=== PATIENT | female | born 1995 | race Caucasian/White ===

== ENCOUNTER 2024-10-10 11:35 | Emergency (ER) | payer OTHER, SELFPAY ==
--- NOTE | ~2024-10-10 | XR_ITS ---
EXAMINATION: XR HAND/WRIST, RIGHT CLINICAL INFORMATION: pain/swelling s/p hitting last night COMPARISON: X-ray dated 09/01/2017 TECHNIQUE: PA, lateral, and oblique views of the right hand and wrist. FINDINGS: No acute cortical disruption or malalignment. No lytic or blastic lesions. No subcutaneous emphysema. XR/XR hand wrist RT IMPRESSION: No acute fracture or dislocation. Electronically signed by: Rasta Hickey MD 10/10/2024 12:41 PM MANE
--- NOTE | 2024-10-10 11:54 | ED_ITS ---
HPI - Extremity Injury (Upper) General Chief Complaint: Extremity Injury, Upper Stated Complaint: R hand injury Time Seen by Provider: 10/10/24 13:02 Source: patient, RN notes reviewed and old records reviewed Mode of arrival: ambulatory History of Present Illness ED Provider: Mery Bonds PA-C HPI narrative: 29-year-old female with no significant past medical history presenting to the ED complaining of right hand/wrist pain and swelling s/p hitting hand on counter while cooking last night. States pain radiating to wrist with associated numbness/tingling to 5th digit. Right-hand dominant. Denies history of gout or arthritis. Denies weakness Related Data Allergies Allergy/AdvReac Type Severity Reaction Status Date / Time mushroom AdvReac Unknown Verified 10/10/24 11:56 Seasonal Allergies AdvReac Unknown Verified 10/10/24 11:56 Review of Systems Review of Systems: Yes all other systems are reviewed and are negative Constitutional: Constitutional: Reports as per [facility] Past Medical History Attestation statement: The following information was validated with the patient. Source: old records reviewed Physical Exam Vital Signs: Vital Signs: Last Vital Signs Temp 97.4 F 10/10/24 11:55 Pulse 88 10/10/24 11:55 Resp 18 10/10/24 11:55 BP 145/92 H 10/10/24 11:55 Pulse Ox 97 10/10/24 11:55 O2 Del Method Room Air 10/10/24 11:55 BMI result Body Mass Index 44.1 Const: General: cooperative, healthy appearing and no acute distress Orientation/consciousness: patient oriented x3 Limitations: no limitations HEENT: Head: Yes normal to inspection and Yes atraumatic Ears: hearing grossly normal bilaterally General nose exam: Normal external nose present Face and sinus: Yes normal facial exam Eyes: General: appearance normal, both eyes and all related structures EOM: EOMs intact bilaterally Neck: Neck: Yes normal visual inspection and Yes no meningeal signs Resp: Effort & Inspection: normal respiratory effort and no respiratory distress Cardio: Rate: regular rate Skin: Rashes: no rashes Wounds: no wounds Neuro: General: patient oriented x3, tone normal and no meningeal signs Cranial nerves: Yes CN's II-XII intact bilaterally Gait exam (Neuro): Normal gait present Extrem: Other: Right hand/wrist with mild swelling. No erythema/warmth. + tender to palpation greatest over ulnar aspect of wrist/5th digit. ROM intact with discomfort. [id number] opposition intact. No crepitus. Course Course Course Narrative: This is a Rapid Medical Exam performed in triage by Mery Bonds PA-C. Full HPI, ROS and PE to be performed by primary ED provider. 29-year-old female presenting to the ED c/o R hand pain/ swelling s/p hitting hand while cooking last night. Admits to tingling in pinky. R hand dominant PE: +R hand swelling, +ttp, dec ROM 2/2 pain, NV intact Plan: XR 1303--XR hand wrist RT IMPRESSION: No acute fracture or dislocation. > velcro volar splint applied for comfort Results discussed with patient including worrisome signs and symptoms and strict return precautions, and when to return to the emergency department. They verbalized understanding and feel safe for discharge at this time. Medical Decision Making Medical Decision Making MDM Narrative: 29-year-old female with no significant past medical history presenting to the ED complaining of right hand/wrist pain and swelling s/p hitting hand on counter while cooking last night. On exam vital signs stable, NAD, nontoxic appearing, physical exam as noted above. Concern for sprain vs fracture. No evidence of septic joint/arthritis or cellulitis. Compartments soft. Low suspicion for DVT Plan: X-ray Please refer to course for remaining clinical decision making, interpretation of labs/imaging results, and discussions with consultants and/or family members. Differential Diagnosis Differential Diagnoses: The differential diagnosis associated with the presentation includes As above Independent Interpretation I performed an independent interpretation of an: Plain X-Ray Radiology Impression Discussion of test interpretation with radiology: I have reviewed the radiologist's reading. External Record Review External record reviewed: Inpatient record, Office record, Outpatient record, Prior outpatient labs, Prior outpatient radiology, Primary care record and Outside ED record Tests considered The following testing was considered but not selected: As above Prescription Management I considered prescription management with: Pain Medication Social Determinants Patient?s care significantly limited by Social Determinants of Health including: Other Social Determinant of Health Discharge Plan Discharge Clinical Impression: Right wrist sprain Patient Disposition: Home, Self-Care Instructions: Wrist Injury (ED) Additional Instructions: Your x-ray is unremarkable Ice and elevate Take Tylenol and ibuprofen as needed Follow-up with her doctor If symptoms persist or worsen or pain is unbearable or area begins to look infected return to the ED Referrals: Physician,Unknown J [Primary Care Provider] - Stand Alone Forms: Work/School Release Print Language: Sinhala
[2024-10-10 11:55] VITALS: BP 145/92; PULSE 88; RESP 18; TEMP 36.3; O2SAT 97; BMI 44.1
[2024-10-10 13:12] VITALS: BP 145/92; PULSE 88; RESP 18; TEMP 36.3; O2SAT 97
== END 2024-10-10 13:14 | disposition home or self-care (01) ==
LOC: HO.ED 13:12
PROVIDERS: Emergency Provider Student in an Organized Health Care Education/Training Program
DX: S63.501A Unspecified sprain of right wrist, initial encounter (principal); M25.531 Pain in right wrist; M79.641 Pain in right hand; X58.XXXA Exposure to other specified factors, initial encounter; Y93.9 Activity, unspecified; Y92.000 Kitchen of unspecified non-institutional (private) residence as the place of occurrence of the external cause; Y99.9 Unspecified external cause status
CPT/HCPCS: 73110; 73130; 99282; 99283

== ENCOUNTER 2024-12-19 14:50 | Emergency (ER) | payer OTHER, SELFPAY ==
--- NOTE | ~2024-12-19 | XR_ITS ---
CLINICAL HISTORY: low back pain Radiographs of the lumbar spine, 3 views Comparison: None Findings: Mild levocurvature with the apex L2/L3. No fracture. The vertebral body heights are preserved. There is mild multilevel intervertebral disc space narrowing with mild endplate osteophytosis. Mild lower lumbar facet hypertrophy. The soft tissues are normal. Impression: No acute findings. Mild degenerative change. This document has been electronically signed by: Elizabeth Spencer MD on 12/19/2024 18:55:52
[2024-12-19 15:20] VITALS: BP 152/94; PULSE 116; RESP 20; TEMP 36.9; O2SAT 100; BMI 44.6
--- NOTE | 2024-12-19 15:23 | ED_ITS ---
HPI - General Adult General Chief complaint: Back Pain/Injury Stated complaint: Lower Back Pain- Numbness, Shooting Pains Down Leg Time Seen by Provider: 12/19/24 16:11 Related Data Previous Rx's ?Medication ?Instructions ?Recorded cyclobenzaprine 10 mg tablet 10 mg PO Q8H #20 tabs 12/19/24 ibuprofen 600 mg tablet 600 mg PO Q6H PRN fever or pain 12/19/24 #30 tabs morphine 15 mg immediate release 15 mg PO Q8H PRN pain #15 tabs 12/19/24 tablet Allergies Allergy/AdvReac Type Severity Reaction Status Date / Time mushroom AdvReac Unknown Verified 12/19/24 15:22 Seasonal Allergies AdvReac Unknown Verified 12/19/24 15:22 [facility] Social History Social History Unable to assess alcohol history related to: Unknown Physical Exam ED Vital Signs: BMI result Body Mass Index 44.6 Course Course Course Narrative: This is a rapid medical exam performed by Carin Mcknight PA-C. The patient is a 29-year-old female with self report of scoliosis, morbid obesity who presents with the acute onset low back pain. Patient states she was at work, ?standing in an odd position?, when she developed acute onset severe central lumbar pain with radiation down both lower extremities. She states her legs were numb for 20 minutes, sensation is now intact. Patient not willing to participate in musculoskeletal exam secondary to her pain. Denies bowel incontinence or urinary retention. Plan to order a CT of the lumbar spine and screening labs. The patient was stable and can return to the waiting room pending her full medical assessment. Medications Administered Discontinued Medications Generic Name Dose Route Start Last Admin Trade Name Freq PRN Reason Stop Dose Admin Cyclobenzaprine HCl 10 mg 12/19/24 16:19 12/19/24 16:36 Cyclobenzaprine Hcl 10 Mg Tablet PO 12/19/24 16:20 10 mg ONCE ONE Administration Morphine Sulfate 15 mg 12/19/24 16:19 12/19/24 16:34 Morphine Sulfate Immed Release 15 Mg Tablet PO 12/19/24 16:20 15 mg ONCE ONE Administration Ondansetron HCl 4 mg 12/19/24 18:05 12/19/24 18:07 Ondansetron Odt 4 Mg Tab.Rapdis TRANSLINGU 03/19/25 18:06 4 mg ONCE ONE Administration Medical Decision Making Lab Data 12/19/24 15:39 12/19/24 15:39 Labs: Lab Results 12/19/24 Range/Units 15:39 WBC 13.6 H (4.8-10.8) X10*3/uL RBC 4.95 (4.20-5.50) X10*6/uL Hgb 13.9 (12.0-16.0) g/dl Hct 40.4 (37.0-47.0) % MCV 81.6 (80.0-98.0) fL MCH 28.1 (27.0-33.0) pg MCHC 34.4 (31.0-35.0) g/dl RDW 12.7 (11.0-16.0) % Plt Count 345 (160-400) X10*3/uL MPV 9.1 L (9.4-12.3) fL Immature Gran % (Auto) 0.4 (0.0-0.4) % Neut % (Auto) 71.8 (45-73) % Lymph % (Auto) 18.8 L (20-40) % [place] % (Auto) 7.7 (2-11) % Eos % (Auto) 1.0 (0-4) % Baso % (Auto) 0.3 (0-2) % Lymph # (Auto) 2.6 (1.2-4.9) X10*3/uL [place] # (Auto) 1.1 (0.1-1.2) X10*3/uL Eos # (Auto) 0.1 (0.0-0.4) X10*3/uL Baso # (Auto) 0.0 (0.0-0.2) X10*3/uL Abs Immat Gran (auto) 0.05 H (0.00-0.03) X10*3/uL Absolute Neuts (auto) 9.8 H (2.0-8.3) x10*3/uL Absolute Nucleated RBC 0.000 (0.0-0.012) X10*3/uL Nucleated RBC % (auto) 0.0 (0.0-0.2) /100WBC Sodium 141 (135-145) mmol/L Potassium 4.2 (3.3-5.1) mmol/L Chloride 109 H (96-108) mmol/L Carbon Dioxide 25 (22-29) mmol/L Anion Gap 11 L (12-20) BUN 9 (9-16) mg/dL Creatinine 0.70 (0.5-1.4) mg/dL Estim Creat Clear Calc 152.4 Estimated GFR > 60 Random Glucose 97 (60-115) mg/dL Calcium 10.1 (8.4-10.2) mg/dL Magnesium 1.8 (1.6-2.6) mg/dL Beta HCG, Quant < 2 mIU/mL Discharge Plan Discharge Clinical Impression: Strain of lumbar region Patient Disposition: Home, Self-Care Instructions: Low Back Strain (ED) Additional Instructions: Rest take pain medication muscle relaxant as prescribed Follow up with legal support specialist Prescriptions: New cyclobenzaprine 10 mg tablet 10 mg PO Q8H Qty: 20 0RF ibuprofen 600 mg tablet 600 mg PO Q6H PRN (Reason: fever or pain) Qty: 30 0RF morphine 15 mg tablet 15 mg PO Q8H PRN (Reason: pain) Qty: 15 0RF Rx Instructions: Partial Fill upon patient request. Referrals: Jose Daniel Guerrero MD [Physician] - 2 weeks Interventions: ED Discharge Assessment Last Done: 12/19/24 19:09 Discharge Date/Time: 12/19/24 19:10 Print Language: Greek
[2024-12-19 15:45] LABS: MANUAL DIFF FLAG NO
[2024-12-19 15:48] LABS: Basophils Percent Auto 0.3 % (0-2); Eosinophils Absolute Auto 0.1 X10*3/uL (0.0-0.4); Hematocrit 40.4 % (37.0-47.0); Hemoglobin 13.9 g/dl (12.0-16.0); Imm Gran Abs Auto 0.05 X10*3/uL (0.00-0.03); Imm Gran Pct Auto 0.4 % (0.0-0.4); Lymphocytes Absolute Auto 2.6 X10*3/uL (1.2-4.9); Lymphocytes Percent Auto 18.8 % (20-40); Mean Corpuscular HGB Conc 34.4 g/dl (31.0-35.0); Mean Corpuscular Hemoglobin 28.1 pg (27.0-33.0); Mean Corpuscular Volume 81.6 fL (80.0-98.0); Mean Platelet Volume 9.1 fL (9.4-12.3); Monocytes Absolute Auto 1.1 X10*3/uL (0.1-1.2); Monocytes Percent Auto 7.7 % (2-11); Neutrophils Absolute Auto 9.8 x10*3/uL (2.0-8.3); Neutrophils Percent Auto 71.8 % (45-73); Platelet Count 345 X10*3/uL (160-400); Red Blood Count 4.95 X10*6/uL (4.20-5.50); Red Cell Distribution Width 12.7 % (11.0-16.0); White Blood Count 13.6 X10*3/uL (4.8-10.8)
[2024-12-19 15:54] VITALS: BP 137/72; PULSE 92; RESP 20; TEMP 36.5; O2SAT 99
[2024-12-19 16:10] LABS: Anion Gap 11 (12-20); Blood Urea Nitrogen 9 mg/dL (9-16); Calcium 10.1 mg/dL (8.4-10.2); Carbon Dioxide 25 mmol/L (22-29); Chloride 109 mmol/L (96-108); Creatinine Clr Calc Pharmacy 152.4; Estimated Glomerular Filt Rate > 60; Glucose Random 97 mg/dL (60-115); Magnesium 1.8 mg/dL (1.6-2.6); Potassium 4.2 mmol/L (3.3-5.1); Sodium 141 mmol/L (135-145)
[2024-12-19 16:13] LABS: HCG Quantitative < 2 mIU/mL
[2024-12-19] MEDS: Morphine Sulfate Immed Release 15 MG TABLET PO (16:34)
[2024-12-19] MEDS: Cyclobenzaprine HCl 10 MG TABLET PO (16:36)
--- NOTE | 2024-12-19 16:49 | ED_ITS ---
HPI - Back Pain/Injury General Chief Complaint: Back Pain/Injury Stated Complaint: Lower Back Pain- Numbness, Shooting Pains Down Leg Time Seen by Provider: 12/19/24 16:11 Source: patient Mode of arrival: ambulatory Limitations: no limitations History of Present Illness ED Provider: HPI Narrative: Patient with chronic low back pain has not seen any specialist yet no recent trauma noticed increased pain in the lower back since yesterday radiating to bilateral lower extremity noticed numbness while standing prior to arrival for 30 minute, also complaining of tingling in the lower extremity but able to move,no bladder or bowel incontinence Related Data Previous Rx's ?Medication ?Instructions ?Recorded cyclobenzaprine 10 mg tablet 10 mg PO Q8H #20 tabs 12/19/24 ibuprofen 600 mg tablet 600 mg PO Q6H PRN fever or pain 12/19/24 #30 tabs morphine 15 mg immediate release 15 mg PO Q8H PRN pain #15 tabs 12/19/24 tablet Allergies Allergy/AdvReac Type Severity Reaction Status Date / Time mushroom AdvReac Unknown Verified 12/19/24 15:22 Seasonal Allergies AdvReac Unknown Verified 12/19/24 15:22 Review of Systems 2 Review of Systems: Yes all other systems are reviewed and are negative [facility] Social History Social History Unable to assess alcohol history related to: Unknown Physical Exam 2 Vital Signs: Vital Signs: Last Vital Signs Temp 98.1 F 12/19/24 19:09 Pulse 77 12/19/24 19:09 Resp 18 12/19/24 19:09 BP 129/80 12/19/24 19:09 Pulse Ox 99 12/19/24 19:09 O2 Del Method Room Air 12/19/24 19:09 BMI result Body Mass Index 44.6 Appearance: Alert. Oriented X3. Obese in modest distress Eyes: PERRLA, No Nystagmus ENT: Pharynx normal. Oral Mucosa moist Neck: Normal inspection. Neck supple. CVS: Normal heart rate and rhythm. Pulses normal. Respiratory: No respiratory distress. Equal air entry bilateral, no wheezing/rales/rhonchi Abdomen: Soft and nontender. Bowel sounds are present, no mass palpable, no CVA tenderness Skin: Skin warm and dry. Normal skin color. Normal skin turgor. Extremities: No lower extremity edema. No calf tenderness Back; diffuse lumbar tenderness SLR bilateral positive deep tendon reflexes normal sensation intact sacral sensations intact Neuro: Oriented X 3. No motor deficit. No sensory deficit.No cerebellar signs , cranial nerves II-XII intact Medications Administered Discontinued Medications Generic Name Dose Route Start Last Admin Trade Name Freq PRN Reason Stop Dose Admin Cyclobenzaprine HCl 10 mg 12/19/24 16:19 12/19/24 16:36 Cyclobenzaprine Hcl 10 Mg Tablet PO 12/19/24 16:20 10 mg ONCE ONE Administration Morphine Sulfate 15 mg 12/19/24 16:19 12/19/24 16:34 Morphine Sulfate Immed Release 15 Mg Tablet PO 12/19/24 16:20 15 mg ONCE ONE Administration Ondansetron HCl 4 mg 12/19/24 18:05 12/19/24 18:07 Ondansetron Odt 4 Mg Tab.Rapdis TRANSLINGU 12/19/24 18:06 4 mg ONCE ONE Administration Medical Decision Making Medical Decision Making [facility] Narrative: Patient with chronic low back pain with subjective pain no objective finding of neuro deficit patient was ambulatory in the ED after pain medication x-ray negative for fracture patient advised to follow with pain clinic Lab Data [facility] Lab Attestation statement: I reviewed the patient's lab results. 12/19/24 15:39 12/19/24 15:39 Labs: Lab Results 12/19/24 Range/Units 15:39 WBC 13.6 H (4.8-10.8) X10*3/uL RBC 4.95 (4.20-5.50) X10*6/uL Hgb 13.9 (12.0-16.0) g/dl Hct 40.4 (37.0-47.0) % MCV 81.6 (80.0-98.0) fL MCH 28.1 (27.0-33.0) pg MCHC 34.4 (31.0-35.0) g/dl RDW 12.7 (11.0-16.0) % Plt Count 345 (160-400) X10*3/uL MPV 9.1 L (9.4-12.3) fL Immature Gran % (Auto) 0.4 (0.0-0.4) % Neut % (Auto) 71.8 (45-73) % Lymph % (Auto) 18.8 L (20-40) % [place] % (Auto) 7.7 (2-11) % Eos % (Auto) 1.0 (0-4) % Baso % (Auto) 0.3 (0-2) % Lymph # (Auto) 2.6 (1.2-4.9) X10*3/uL [place] # (Auto) 1.1 (0.1-1.2) X10*3/uL Eos # (Auto) 0.1 (0.0-0.4) X10*3/uL Baso # (Auto) 0.0 (0.0-0.2) X10*3/uL Abs Immat Gran (auto) 0.05 H (0.00-0.03) X10*3/uL Absolute Neuts (auto) 9.8 H (2.0-8.3) x10*3/uL Absolute Nucleated RBC 0.000 (0.0-0.012) X10*3/uL Nucleated RBC % (auto) 0.0 (0.0-0.2) /100WBC Sodium 141 (135-145) mmol/L Potassium 4.2 (3.3-5.1) mmol/L Chloride 109 H (96-108) mmol/L Carbon Dioxide 25 (22-29) mmol/L Anion Gap 11 L (12-20) BUN 9 (9-16) mg/dL Creatinine 0.70 (0.5-1.4) mg/dL Estim Creat Clear Calc 152.4 Estimated GFR > 60 Random Glucose 97 (60-115) mg/dL Calcium 10.1 (8.4-10.2) mg/dL Magnesium 1.8 (1.6-2.6) mg/dL Beta HCG, Quant < 2 mIU/mL Discharge Plan Discharge Clinical Impression: Strain of lumbar region Patient Disposition: Home, Self-Care Instructions: Low Back Strain (ED) Additional Instructions: Rest take pain medication muscle relaxant as prescribed Follow up with reproduction specialist Prescriptions: New cyclobenzaprine 10 mg tablet 10 mg PO Q8H Qty: 20 0RF ibuprofen 600 mg tablet 600 mg PO Q6H PRN (Reason: fever or pain) Qty: 30 0RF morphine 15 mg tablet 15 mg PO Q8H PRN (Reason: pain) Qty: 15 0RF Rx Instructions: Partial Fill upon patient request. Referrals: Jose Daniel Guerrero MD [Physician] - 2 weeks Interventions: ED Discharge Assessment Last Done: 12/19/24 19:09 Discharge Date/Time: 12/19/24 19:10 Print Language: Emirati
[2024-12-19] MEDS: Ondansetron ODT 4 MG TAB.RAPDIS TRANSLINGU (18:07)
--- NOTE | 2024-12-19 18:09 | PC.NURSE ---
Pt vomiting and dry heaving. wants to eat. medicated with zofran per md order. advised to delay eating until no longer nauseated.
[2024-12-19 18:27] VITALS: BP 135/91; PULSE 76; RESP 14; O2SAT 100
[2024-12-19 19:09] VITALS: BP 129/80; PULSE 77; RESP 18; TEMP 36.7; O2SAT 99
== END 2024-12-19 19:10 | disposition home or self-care (01) ==
PROVIDERS: Physician Assistant Medical; Emergency Provider Internal Medicine
DX: S39.012A Strain of muscle, fascia and tendon of lower back, initial encounter (principal); R20.0 Anesthesia of skin; X58.XXXA Exposure to other specified factors, initial encounter; Y93.9 Activity, unspecified; Y92.9 Unspecified place or not applicable; Y99.8 Other external cause status
CPT/HCPCS: 36415; 72100; 80048; 83735; 84702; 85025; 99283; 99284

== ENCOUNTER → 2024-12-19 16:19 | Outpatient (BNV) | payer OTHER, SELFPAY | PROVIDERS: Emergency Provider Internal Medicine; Visit Provider Radiology Diagnostic Radiology | DX: M54.50 Low back pain, unspecified (principal) | CPT/HCPCS: 72100 ==

== ENCOUNTER 2025-01-16 09:20 | Emergency (ER) | payer OTHER, SELFPAY ==
--- NOTE | ~2025-01-16 | CT_ITS ---
EXAMINATION: CT HEAD WITHOUT CONTRAST CLINICAL INFORMATION: Head trauma, severe headache COMPARISON: None available. TECHNIQUE: Contiguous axial imaging was performed from the skull base to vertex without intravenous administration of contrast. This CT examination was performed using dose optimization techniques as appropriate, variously including the following: *Automated exposure control *Adjustment of mA and/or kV according to patient size (this includes techniques or standardized protocols for targeted exams where dose is matched to indication/reason for exam; i.e. extremities or head) *Use of iterative reconstruction technique FINDINGS: There is no evidence of intracranial hemorrhage or extra-axial fluid collection. There is no mass effect, or edema. No CT evidence of acute territorial infarct. Ventricles, sulci, and cisterns are normal in size and configuration for patient age. No hydrocephalus. No midline shift. Negative hyperdense MCA sign. Negative insular ribbon sign. No significant white matter abnormalities. Normal pituitary. Globes and orbital contents image normally. No extracranial soft tissue abnormalities. The paranasal sinuses, mastoid air cells, and tympanic cavities are normally aerated. No suspicious bony abnormalities. There are no acute fractures evident. CT/CT head/brain wo IV con IMPRESSION: No acute intracranial abnormality. There are no fractures evident. Electronically signed by: Nilesh Burger MD 01/16/2025 10:45 AM EDT
[2025-01-16 09:25] VITALS: BP 150/94; PULSE 75; RESP 16; TEMP 36.7; O2SAT 100; BMI 41.1
--- NOTE | 2025-01-16 10:16 | ED.HEATRA ---
HPI - Head Injury General Chief complaint: Head Injury Stated complaint: Concussion Symptoms- Headache, Loss of Sleep Time Seen by Provider: 01/16/25 09:52 Source: patient Mode of arrival: ambulatory Limitations: no limitations History of Present Illness ED Provider: RENÉE GASTELUM Narrative: 29 yo female with PMH of concussions not on blood thinners here with c/o left sided head pain due to headstrike last night (01/15). Patient states she was in her bathroom and turned quickly causing her to hit the left side of her head on the corner of the wall. She states she did not experience loss of consciousness, but does report headache and photophobia this morning when waking up. She has trialed ibuprofen last night for pain management without effect. She reports she had a concussion approximately 10 years ago while in highschool and this injury feels similar in nature. She denies, vomiting, visual changes, or weakness. MD Complaint: head injury Onset (ago): day(s) (1 day (01/15) ) Mechanism of Injury: other (turned and hit head on wall) Place: home Loss of Consciousness: no Location of injury: temporal (left) Severity: moderate Quality: dull Radiation: none Other Injuries: none Associated symptoms: other (photophobia) Related Data Previous Rx's ?Medication ?Instructions ?Recorded cyclobenzaprine 10 mg tablet 10 mg PO Q8H #20 tabs 12/19/24 ibuprofen 600 mg tablet 600 mg PO Q6H PRN fever or pain 12/19/24 #30 tabs morphine 15 mg immediate release 15 mg PO Q8H PRN pain #15 tabs 12/19/24 tablet cyclobenzaprine 10 mg tablet 10 mg PO TID PRN muscle spasm #20 01/16/25 tabs ondansetron 4 mg disintegrating 4 mg PO Q8H PRN nausea and 01/16/25 tablet vomiting #20 tabs Allergies Allergy/AdvReac Type Severity Reaction Status Date / Time mushroom AdvReac Unknown Verified 01/16/25 09:27 Seasonal Allergies AdvReac Unknown Verified 01/16/25 09:27 Review of Systems Review of Systems: Constitutional : No Fever, No Chills, No Fatigue ENT/Mouth : No sore throat, No Rhinorrhea Eyes: No Eye Pain, No Swelling, No Redness, pos photophobia Cardiovascular : No Chest Pain, No SOB, No Dyspnea on Exertion Respiratory : No Cough, No Sputum Gastrointestinal : No Nausea, No Vomiting, No Diarrhea, No abdominal Pain Genitourinary : No Dysuria, No Urinary Frequency, No Hematuria, Musculoskeletal : No joint pain, No Myalgias, No Joint Swelling Skin : No Skin Lesions, No rash Neuro : No Weakness, No Numbness, No Dizziness, positive Headache Psych : No Anxiety/Panic, No Depression Heme/Lymph: No Bruising, No Bleeding,No Lymphadenopathy Endocrine : No Polyuria, No Polydipsia All other systems reviewed and are negative Yes all other systems are reviewed and are negative [facility] Past Medical History Attestation statement: The following information was validated with the patient. Source: old records reviewed Medical History Concussion Social History Social History Unable to assess alcohol history related to: Unknown Patient Tobacco Use Status: Never used Tobacco Advance Directives: No Advance Directives Information Provided: Yes Physical Exam Vital Signs: Vital Signs: Last Vital Signs Temp 98.1 F 01/16/25 09:25 Pulse 75 01/16/25 09:25 Resp 16 01/16/25 09:25 BP 150/94 H 01/16/25 09:25 Pulse Ox 100 01/16/25 09:25 O2 Del Method Room Air 01/16/25 09:25 BMI result Body Mass Index 41.1 Appearance: Alert. Oriented X3. No acute distress. Eyes: Pupils equal, round and reactive to light. ENT: Pharynx normal. no raccoon eyes or gallagher sign Neck: Normal inspection. Neck supple. CVS: Normal heart rate and rhythm. Pulses normal. Respiratory: No respiratory distress. Breath sounds normal. Abdomen: Soft and nontender. Skin: Skin warm and dry. Normal skin color. Normal skin turgor. Extremities: No lower extremity edema. No calf ttp Neuro: Oriented X 3. No motor deficit. No sensory deficit. CN2-12 intact Medications Administered Discontinued Medications Generic Name Dose Route Start Last Admin Trade Name Freq PRN Reason Stop Dose Admin Ketorolac Tromethamine 30 mg 01/16/25 10:30 01/16/25 10:44 Ketorolac Tromethamine 30 Mg/Ml Vial IM 01/16/25 10:31 30 mg ONCE ONE Administration Ondansetron HCl 4 mg 01/16/25 10:30 01/16/25 10:44 Ondansetron Odt 4 Mg Tab.Avril RUTLEDGE 01/16/25 10:31 4 mg ONCE ONE Administration Medical Decision Making Medical Decision Making [facility] Narrative: 29 yo female with PMH of concussions not on blood thinners here with c/o left sided head pain due to headstrike last night (01/15). Patient states she was in her bathroom and turned quickly causing her to hit the left side of her head on the corner of the wall. She states she did not experience loss of consciousness, but does report headache and photophobia this morning when waking up. She has trialed ibuprofen last night for pain management without effect. She reports she had a concussion approximately 10 years ago while in highschool and this injury feels similar in nature. She denies vomiting, visual changes, or weakness. Patient is non toxic appearing and vital signs unremarkable with exception of BP which is elevated at 150/94 likely due to severe headache. Will obtain CT head to ensure no hemorrhage or temporal skull fracture. Will give IM toradol for headache and ondansetron for nausea. Differential Diagnosis Differential Diagnoses: The differential diagnosis associated with the presentation includes concussion, head injury, migraine Admission/Observation Consideration of admission/observation: Escalation of care including admission/observation considered feels better, work up reassuring stable for DC Independent Interpretation I performed an independent interpretation of an: CT Scan (normal ) Radiology Impression Discussion of test interpretation with radiology: I have reviewed the radiologist's reading. External Record Review External record reviewed: Outpatient record Prescription Management I considered prescription management with: Other Discharge Plan Discharge Clinical Impression: Concussion without loss of consciousness Qualifiers: Encounter type: initial encounter Qualified Code(s): S06.0X0A - Concussion without loss of consciousness, initial encounter Patient Disposition: Home, Self-Care Instructions: Concussion (ED) Additional Instructions: [place] [facility] for [place] today. Your CT scan was reassuring and revealed no trauma. You will be placed on brain rest protocol for 1 week. This includes plenty of rest, time off of work, no strenuous exercise, eliminate screen time and limit time under bright lights. follow up with your doctor if not better in one week no ibuprofen/motrin until 6pm Prescriptions: New cyclobenzaprine 10 mg tablet 10 mg PO TID PRN (Reason: muscle spasm) Qty: 20 0RF ondansetron 4 mg tablet,disintegrating 4 mg PO Q8H PRN (Reason: nausea and vomiting) Qty: 20 0RF No Action cyclobenzaprine 10 mg tablet 10 mg PO Q8H Qty: 20 0RF ibuprofen 600 mg tablet 600 mg PO Q6H PRN (Reason: fever or pain) Qty: 30 0RF morphine 15 mg tablet 15 mg PO Q8H PRN (Reason: pain) Qty: 15 0RF Rx Instructions: Partial Fill upon patient request. Stand Alone Forms: Work/School Release Print Language: Yoruba
[2025-01-16] MEDS: Ondansetron ODT 4 MG TAB.RAPDIS TRANSLINGU (10:44)
[2025-01-16] MEDS: Ketorolac Tromethamine 30 MG/ML VIAL IM (10:44)
[2025-01-16 11:13] VITALS: BP 121/74; PULSE 62; RESP 16; O2SAT 96
[2025-01-16 11:25] VITALS: BP 121/74; PULSE 62; RESP 16; TEMP -17.7; TEMP 0; O2SAT 96
--- OUTSIDE RECORDS SUMMARY | 2025-01-16 12:27 | XMS_ITS | Encounter Summary ---
Author Organization [email or web address] Address [address] [place] [address] Care Team Providers Care Supervisor [employer] Name Role Phone Unavailable Primary Care Provider Unavailabl e Encounter Details Date Type Department Care Team (Latest Contact Info) Description 07/20/2019 Abstract [facility] CONVERSIONS Dental, Provider, DDS Social History Tobacco Use Types Packs/Day Years Used Date Smoking Tobacco: Never Assessed Comments Unknown Sex and Gender Information Value Date Recorded Sex Assigned at Female 08/02/2022 10:30 AM EDT Legal Sex Female 10:30 AM EDT Gender Identity Female 08/02/2022 10:30 AM EDT Sexual Orientation Choose not to disclose 2021 10:30 AM EDT documented as of this encounter Plan of Treatment Not on file documented as of this encounter Visit Diagnoses Not on filedocumented in this encounter
--- OUTSIDE RECORDS SUMMARY | 2025-01-16 12:27 | XMS_ITS | Encounter Summary ---
Author Organization [facility] [place] [address] Care Team Providers Care Proofer Prepress Name Role Phone Tamiko Santos MD Primary Care Provider [phone] Encounter Details Date Type Department Care Team ([facility] st Contact Info) Description 01/10/2025 Telephone Adult Medicine [address] [phone] Myrna Paris, TERENCE Social History Tobacco Use Types Packs/Day Years Used Date Smoking Tobacco: Some Days Smokeless Tobacco: Current Alcohol Use Standard Drinks/Week Comments Not Currently 0 (1 standard drink = 0.6 oz pur e alcohol) Housing Instability Answer Date Recorde d Are you worried that in the next 2 months you may not have stable housing? No 01/09/2025 Food Access & Nutrition Answer Date Rec orded Do you have access to a vari ety of food including fruits and vegetables? Yes 01/09/2025 Access to Healthcare Answer Date Record ed Within the last 3 months, ho w many times did you visit the emergency department for your medical care? 2 01/09/2025 Health Literacy Answer Date Recorded How often do you need to hav e someone help you when you read instructions, pamphlets, or other written material from your doctor or pharmacy? Never 01/09/2025 Caregiver: How often do you need to have someone help you when you read instructions, pamphlets, or other written material from your doctor or pharmacy? Not on file 01/09/2025 Financial Risk Answer Date Recorded How hard is it for you to pa y for the very basics like food, housing, medical care, and air conditioning / heating? Hard 01/09/2025 Transportation Answer Date Recorded Has the lack of transportati on kept you from meetings, work, or from getting things needed for daily living? No Has the lack of transportati on kept you from medical appointments or from getting medications? No 01/09/2025 Social Isolation Answer Date Recorded How often do you feel lonely or isolated from th ose around you? Rarely 01/09/2025 Food Risk Answer Date Recorded Within the past 12 months we worried whether our food would run out before we got money to buy more. Never true 01/09/2025 Within the past 12 months th e food we bought just didn't last and we didn't have money to get more. Never true 01/09/2025 Dependent Care Answer Date Recorded Do you need help finding or paying for care for your loved ones. For example, child welfare specialist or elderly care for an older adult? No 01/09/2025 Education Answer Date Recorded Do you think completing more education or training, like finishing a GED, going to college, or learning a trade, would be helpful for you? N/A 01/09/2025 Employment and Income Answer Date Recor ded During the last four weeks, have you been actively looking for work? No 01/09/2025 Living Situation Answer Date Recorded What is your living situation? 0 01/09/2025 Comments Unknown Sex and Gender Information Value Date Recorded Sex Assigned at Not on file Legal Sex Female 7:18 PM EST Gender Identity Not on file Sexual Orientation Not on file documented as of this encounter Progress Notes * Myrna Paris RN - 01/10/2025 5:00 PM EDT Call to pt. Left message for pt to call triage Dmitry shay in am pt called with NO BP and fainting * Eri Warren - 01/10/2025 4:34 PM EDT Patient returning ph# [phone] * Myrna Paris RN - 01/10/2025 2:56 PM EDT Pt read my chart message at 1:30 but has not called the office visit today cannot be completed via video visit , pt needs triage * Myrna Paris RN - 01/10/2025 10:52 AM EDT Call to pt. Left message for pt to call triage * Myrna Paris RN - 01/10/2025 10:40 AM EDT Pt booked video visit today at 4:[address] santos for no blood pressure and fainting needs triage documented in this encounter Plan of Treatment Not on file documented as of this encounter Visit Diagnoses Not on filedocumented in this encounter Additional Health Concerns Assessment Noted Time PHQ-9 Depression Total Score: 1 01/11/20 25 1:32 PM EDT documented as of this encounter Care Teams Proofer Prepress Relationship Specialty Start Date End Date Tamiko Santos MD [address] [place] [address] PCP - General 06/27/23 documented as of this encounter
--- OUTSIDE RECORDS SUMMARY | 2025-01-16 12:27 | XMS_ITS | Encounter Summary ---
Author Organization [facility] Address [address] [place] [address] Phone Care Team Providers Care Airline Managerial Supervisor Name Role Phone Sarah Frost MD Primary Care Provider [phone] Encounter Details Date Type Department Care Team (Late st Contact Info) Description 02/24/2010 Documentation [facility] [place] [address] [place] [address] Family Medicine, Physician [address] [place], [place] [phone] Social History Tobacco Use Types Packs/Day Years Used Date Smoking Tobacco: Never Assessed Comments Unknown Sex and Gender Information Value Date Recorded Sex Assigned at Not on file Legal Sex Female 4:51 PM EDT Gender Identity Not on file Sexual Orientation Not on file documented as of this encounter Plan of Treatment Not on file documented as of this encounter Visit Diagnoses Not on filedocumented in this encounter Care Teams Airline Managerial Supervisor Relationship Specialty Start Date End Date Sarah Frost MD [address] [place] [id number] PCP - General 05/13/17 01/09/23 documented as of this encounter
--- OUTSIDE RECORDS SUMMARY | 2025-01-16 12:27 | XMS_ITS | Clinical Summary ---
Author Organization [place] [place] [address] [facility] Address [address] [place] [address] Phone Care Team Providers Care Voice Instructor Name Role Phone Tamiko Meraz MD Primary Care Provider [phone] Allergies Active Allergy Reactions Criticality Noted Date Comments Albuterol 07/04/2019 History of SVT and unspecified tachycardia s/p toprol, PALPITATIONS WITH ASTHMA EXACERBATIONS Other 09/09/2016 Seasonal allergies Medications hydrocortisone 2.5 % cream Apply small amount over the affected area twice daily 3 Active omeprazole (PriLOSEC) [address] capsule Take 2 Capsules by mouth daily. 3 Active silver sulfADIAZINE (SILVADENE, SSD) 1 % cream Apply small amount to the wound once daily before dressing with bandaid 3 Active Active Problems Problem Noted Date Diagnosed Date Anxiety 07/14/2023 Breast lump in female 12/28/2021 Overview (09/24/2024): Last Assessment & Plan: HCG negative. Diagnostic mammogram and breast sono ordered. Allergic conjunctivitis of both eyes 07/04/2019 Mild persistent asthma 07/04/2019 Perennial allergic rhinitis 07/04/2019 Renal calculi 11/02/2018 Seasonal allergies 11/02/2018 Chronic abdominal pain 01/11/2018 Overview (09/24/2024): Follows with [facility]; US abdomen, transvaginal US, CT abdomen/pelvis all normal. Diagnostic colonoscopy with Dr. Timmons 01/31/2018 normal. Snoring 10/12/2017 Overview (09/24/2024): 10/10/2017 Home Sleep Study did not reveal sleep apnea. PTSD (post-traumatic stress disorder) 09/28/2016 Vasovagal syncope 09/28/2016 Overview (09/24/2024): Follows with [facility] (Dr. De La Rosa # [phone]) since age of 12. Normal EEG 11/05/2016, normal tilt table testing and stress echo. Cardiac event monitor showed sinus tachycardia at times. Also follows with cardiology recently started on Midodrine Asthma 09/09/2016 Overview (09/24/2024): Normal pulmonary function testing November 2019 Encounters Date Type Department Care Team Description 01/10/2025 Telephone Adult Medicine [address] [phone] Myrna Paris RN from Last 3 Months Immunizations Name Administration Dates Next Due HPV, Quadrivalent 09/03/2010,11/13/2009 Hepatitis A Pediatric (Havri x; Vaqta) 12mo to less than 19yo 05/24/2011 Hepatitis B Pediatric (Enger ix B; Recombivax HB) to less than 20 yo 06/24/1998,1997,1997 Influenza Quadravalent, MDCK , 0.5ml, preservative free (Flucelvax) 6mo and older 07/14/2023,11/02/2018 Influenza trivalent, 0.5mL, preservative free (Fluarix; FluLaval; Fluzone) ages 6mo and older (Afluria) 3 years and older 06/03/2016 Influenza, Unspecified 11/30/2019 Pneumococcal polysaccharide 23 valent (Pneumovax 23) 2yo and older 12/07/2017 Tdap Tetanus diptheria acell ular pertussis (Boostrix; Adacel) 7yo and older 06/11/2016,10/28/2008 Surgical History Surgery Date Site/Laterality Comments ADENOIDECTOMY PROCEDURE: HISTORICAL ADENOIDECTOMY TONSILLECTOMY PROCEDURE: HISTORICAL TONSILLECTOMY Medical History Medical History Date Comments Patellofemoral pain syndrome DX: Patellofemoral pain syndrome; COMMENT: In clinic being and then(L) Asthma DX:Asthma PTSD (post-traumatic stress disorder) 09/28/2016 DX:PTSD (post-traumatic stress disorder) Allergic rhinitis 01/18/2017 DX:Allergic rh initis Vasovagal syncope 09/28/2016 DX:Vasovagal s yncope; COMMENT: Follows with [facility] (Dr. De La Rosa # [phone]) since age of 12. Normal EEG 11/05/2016, normal tilt table testing and stress echo. Cardiac event monitor showed sinus tachycardia at times. Also follows with cardiology recently started on Midodrine Tendonitis of wrist, right 11/25/2017 DX:Te ndonitis of wrist, right; COMMENT: Follows with physiatry, referred to PT Chronic abdominal pain 01/11/2018 DX:Chroni c abdominal pain; COMMENT: Follows with [facility]; US abdomen, transvaginal US, CT abdomen/pelvis all normal. Diagnostic colonoscopy with Dr. Timmons 01/31/2018 normal. Tachycardia DX:Tachycardia Kidney stones DX:Kidney stones Family History Medical History Relation Name Comments Asthma Father Brain cancer Maternal Grandfather Colon cancer Maternal Grandfather Other: cancer of lung Maternal Grandfather Prostate cancer Maternal Grandfather Stomach cancer Maternal Grandfather Breast cancer Maternal Grandmother Other: ovarian cancer Maternal Grandmother cervical ca in 40's/ Other: blood clots Mother Other: skin cancer Paternal Grandfather Other: panceatic cancer Paternal Grandmother Other: skin cancer Paternal Grandmother Relation Name Status Comments Father Alive Maternal Grandfather Maternal Grandmother Alive Mother Alive Paternal Grandfather Alive Paternal Grandmother Social History Tobacco Use Types Packs/Day Years [...] for your loved ones. For example, child daycare worker or elderly care for an older adult? [...] on file Sexual Orientation Not on file Obstetrics History Last Filed Vital Signs Vital Sign Reading Time Taken Comments Blood Pressure 116/64 08/29/2023 3:24 PM EST Pulse 68 08/29/2023 3:24 PM EST Temperature - - Respiratory Rate - - Oxygen Saturation - - Inhaled Oxygen Concentration - - Weight 91.6 kg (202 lb) 08/31/2023 3:11 PM EST Height 162.6 cm (5' 4 ) 08/31/2023 3:11 PM EST Body Mass Index 34.67 08/31/2023 3:11 PM EST Plan of Treatment Health Maintenance Due Date Last Done Comments Pneumococcal Vaccine: Pediatrics (0 to 5 Years) and At-Risk Patients (6 to 64 Years) (2 of 2 - PCV) 12/07/2018 12/07/2017 Medicare Annual Wellness Visit 09/04/2022 COVID-19 Vaccine ( season) 2024 04/27/2021, 04/06/2021 Cervical Cancer Screening: Pap Smear 05/20/2025 05/20/2022, 05/20/2022, 05/20/2022, Additional history exists Influenza Vaccine (Season Ended) 2025 07/14/2023, 11/30/2019, 11/02/2018, Additional history exists Social Influencers of Health Screening 01/09/2026 01/09/2025 Depression Screening 01/10/2026 01/10/2025 DTaP,Tdap,and Td Vaccines (7 - Td or Tdap) 06/11/2026 06/11/2016, 10/28/2008, 07/18/2001, Additional history exists Cholesterol Screening (Lipid Panel) 07/14/2028 07/14/2023 Hepatitis B Vaccines Completed 06/24/1998, 1997, 1997 HIB Vaccines Completed 09/22/1998, 12/03, 1997, Additional history exists IPV Vaccines Completed 07/18/2001, 12/02, 1997, Additional history exists MMR Vaccines Completed 07/18/2001, 09/22/1998 Meningococcal ACWY Vaccine Aged Out 10/28/2008 N o longer eligible based on patient's age to complete this topic HPV Vaccines Completed 09/03/2010, 11/03, 10/28/2008 Hepatitis A Vaccines Completed 05/24/2011, 06/24/19 98 HIV Screening Completed 12/03/2016 Hepatitis C Screening Completed 12/03/2016 Meningococcal B Vaccine Aged Out No l onger eligible based on patient's age to complete this topic RSV Immunization Patients Under 20 months Aged Out No longer eligible based on patient's age to complete this topic Varicella Vaccines Aged Out No longer eligible based on patient's age to complete this topic Procedures Procedure Name Priority Date/Time Associated Diagnosis Comments LIPID PANEL Routine 07/14/2023 PAP SMEAR Routine 05/20/2022 HEPATITIS C SCREENING Routine 12/03/2016 HIV SCREENING Routine 12/03/2016 from Last 3 Months or Most Recently Relevant to Health Maintenance Results * Lipid panel (07/14/2023) LDL/HDL Ratio 3 0 - 4 Triglycerides 96 0 - 150 mg/dL Cholesterol 162 0 - 200 mg/dL HDL 63 >=40 mg/dL LDL Cholesterol 80 0 - 100 mg/dL Blood Venous blood specimen / Unknown us Historical Provider MD LAB BLOOD ORDERABLES Estee l Result * Pap smear (05/20/2022) 05/20/2022 Narrative HISTORICAL TESTING LAB RESULTING AGENCY - 05/26/2022 7:40 AM EDT [id number] THINPREP PAP, IMAGED: NEGATIVE FOR SQUAMOUS INTRAEPITHELIAL LESION AND MALIGNANCY . BRADEN IRWIN(ASCP) (CASE ELECTRONICALLY SIGNED 05 25 2022) ADEQUACY: SATISFACTORY ENDOCERVICAL/TRANSFORMATION ZONE COMPONENT PRESENT. SOURCE: THINPREP PAP HPV IF ASCUS, CERVICAL, IMAGED CLINICAL INFORMATION: HPV IF DIAGNOSIS OF ASCUS. PAP HX NEGATIVE, [Z01.419] Paresh Langford DO LAB CYTOLOGY ORDERABLES Final Result HISTORICAL TESTING LAB RESULTING AGENCY * HIV Screening (12/03/2016) HIV Screening abstracted Historical Provider HEALTH MAINTENANCE Final Result * Hepatitis C Screening (12/03/2016) Hepatitis C Screening abstracted us Historical Provider HEALTH MAINTENANCE Final Result from Last 3 Months or Most Recently Relevant to Health Maintenance Insurance [employer] Care Teams Voice Instructor Relationship Specialty Start Date End Date Tamiko Meraz MD [address] [place] [phone] PCP - General 06/27/23
--- OUTSIDE RECORDS SUMMARY | 2025-01-16 12:27 | XMS_ITS | Encounter Summary ---
Author Organization [facility] Address [address] [place] [phone] Phone Care Team Providers Care Logistics Officer Name Role Phone Sarah Frost MD Primary Care Provider [phone] Encounter Details Date Type Department Care Team (Late st Contact Info) Description 10/01/2013 Documentation [facility] [place] Medicine [address] [place] [address] Family Medicine, Physician [address] [place], [place] [phone] Social History Tobacco Use Types Packs/Day Years [...] on filedocumented in this encounter Care Teams Logistics Officer Relationship Specialty Start Date End Date Sarah Frost MD [address] [place] [phone] PCP - General 05/13/17 01/09/23 documented as of this encounter
--- OUTSIDE RECORDS SUMMARY | 2025-01-16 12:27 | XMS_ITS | Encounter Summary ---
Author Organization [facility] Address [address] [place] [address] Phone Care Team Providers Care Convex Grinder Name Role Phone Sarah Frost MD Primary Care Provider [phone] Encounter Details Date Type Department Care Team (Late st Contact Info) Description 05/19/2017 Conversion Encounter [facility] [address] [place] [address] Social History Tobacco Use Types Packs/Day Years Used Date Smoking Tobacco: Never Comments:Never smoker Comments Unknown Sex and Gender Information Value Date Recorded Sex Assigned at Not on file Legal Sex Female 4:51 PM EDT Gender Identity Not on file Sexual Orientation Not on file documented as of this encounter Plan of Treatment Not on file documented as of this encounter Visit Diagnoses Not on filedocumented in this encounter Care Teams Convex Grinder Relationship Specialty Start Date End Date Sarah Frost MD [address] [place] [address] PCP - General 05/13/17 01/09/23 documented as of this encounter
--- OUTSIDE RECORDS SUMMARY | 2025-01-16 12:27 | XMS_ITS | Encounter Summary ---
Author Organization [facility] Address [address] [place] [address] Phone Care Team Providers Care Auto Porter Name Role Phone Sarah Frost MD Primary Care Provider [phone] Encounter Details Date Type Department Care Team (Late st Contact Info) Description 12/02/2009 Documentation [facility] [place] [address] [place] [address] Family Medicine, Physician [address] [place], [place] [phone] Social History Tobacco Use Types Packs/Day Years [...] on filedocumented in this encounter Care Teams Auto Porter Relationship Specialty Start Date End Date Sarah Frost MD [address] [place] [id number] PCP - General 05/13/17 01/09/23 documented as of this encounter
--- OUTSIDE RECORDS SUMMARY | 2025-01-16 12:27 | XMS_ITS | Encounter Summary ---
Author Organization [facility] Address [address] [place] [address] Phone Care Team Providers Care Support Clerk Name Role Phone Sarah Frost MD Primary Care Provider Encounter Details Date Type Department Care Team (Late st Contact Info) Description 02/17/2012 Documentation [facility] [place] [address] [place] [address] Family Medicine, Physician [address] [place], [place] [phone] Social History Tobacco Use Types Packs/Day Years [...] on filedocumented in this encounter Care Teams Support Clerk Relationship Specialty Start Date End Date Sarah Frost MD [address] [place] [phone] PCP - General 05/13/17 01/09/23 documented as of this encounter
--- OUTSIDE RECORDS SUMMARY | 2025-01-16 12:27 | XMS_ITS | Clinical Summary ---
Author Organization [facility] Address [address] [place] [address] Phone Care Team Providers Care Automatic Typewriter Inspector Name Role Phone Unavailable Primary Care Provider Unavailabl e Immunizations Immunization Administration Dates Next Due DTaP 5 07/18/2001, 8,1997,08/28 H1N1 10/04/2009 HPV, Quadrivalent 09/03/2010,11/13/2009,10/28/19 09 Hep A, ped/adol 05/24/2011 Hep B, ped/adol 06/24/1998,1997,1997 Hib (PRP-T) 09/22/1998, 8,1997,08/28 IPV 07/18/2001, 9,1997,08/28 Influenza Split 05/24/2011,09/03/2010 Influenza, injectable, quadr ivalent, preservative free 08/09/2013 Influenza, injectable, trivalent 10/04/2009,10/04,08/04/2007 MMR 07/18/2001,09/22/1998 Meningococcal Conj (Menactra) MCV4P 10/28/2008 Tdap 10/28/2008 Family History Relation Name Status Comments Father Father: Asthma, Obesity, Strabismus Mother Alive Mother: Alive a nd well Other Family history of Cancer, Family history of ADD/ADHD, Family history of Sudden /GA under age 55, Family history of Obesity Social History Tobacco Use Types Packs/Day Years Used Date Smoking Tobacco: Never Comments:Never smoker Comments Unknown Sex and Gender Information Value Date Recorded Sex Assigned at Not on file Legal Sex Female 4:51 PM EDT Gender Identity Not on file Sexual Orientation Not on file Last Filed Vital Signs Vital Sign Reading Time Taken Comments Blood Pressure 123/77 01/02/2014 12:00 AM EDT Pulse 72 03/22/2013 12:00 AM EDT Temperature 36.7 ??C (98 ??F) 01/02/2014 12:00 AM EDT Respiratory Rate - - Oxygen Saturation 98% 02/10/2011 12:00 AM EDT Inhaled Oxygen Concentration - - Weight 83.6 kg (184 lb 6.4 oz) 01/02/2014 12:00 AM EDT Height 164.3 cm (5' 4.7 ) 01/02/2014 12:00 AM ED T Body Mass Index 30.97 01/02/2014 12:00 AM EDT Plan of Treatment Health Maintenance Due Date Last Done Comments Varicella Vaccines (1 of 2 - 13+ 2-dose series) 2010 Hepatitis A Vaccines (2 of 2 - 2-dose series) 11/24/2011 05/24/2011 DTaP,Tdap,and Td Vaccines (6 - Td or Tdap) 10/28/2018 10/28/2008, 07/18/2001, 1997, Additional history exists Influenza Vaccines (#1) 2024 08/09/20 13, 05/24/2011, 09/03/2010, Additional history exists COVID-19 Vaccine ( season) 2024 Hepatitis B Vaccines Completed 06/24/1998, 1997, 1997 HIB Vaccines Completed 09/22/1998, 12/03, 1997, Additional history exists IPV Vaccines Completed 07/18/2001, 12/02, 1997, Additional history exists MMR Vaccines Completed 07/18/2001, 09/22/1998 Meningococcal Vaccine Aged Out 10/28/2008 No francisco silva eligible based on patient's age to complete this topic HPV Vaccines Completed 09/03/2010, 11/03, 10/28/2008 Men B Vaccine Aged Out No longer elig ible based on patient's age to complete this topic Pneumococcal Vaccine Aged Out No long er eligible based on patient's age to complete this topic Procedures * Due to [place] state law, this organization might not be sharing sensitive test results. Procedure Name Priority Date/Time Associated Diagnosis Comments CHLAMYDIA AND GONORRHEA, AMPLIFIED Routine 08/10/2013 3:32 PM EST from Last 3 Months or Most Recently Relevant to Health Maintenance Results * Due to [place] state law, this organization might not be sharing sensitive test results. * Chlamydia and Gonorrhoea, Amplified (08/10/2013 3:32 PM EST) URINE CHLAMYDIA AMP PROBE NEGATIVE [facility] Comment: NO CHLAMYDIA TRACHOMATIS RNA DETECTED IN THIS PATIENT'S SAMPLE. ? (REFERENCE RANGE/NORMAL VALUE: NOT DETECTED) URINE GC AMP PROBE NEGATIVE [facility] Comment: NO NEISSERIA GONORRHOEAE RNA DETECTED IN THIS PATIENT'S SAMPLE. ? (REFERENCE RANGE/NORMAL VALUE: NOT DETECTED) ? NOTE: THIS TEST USES TRACK WATCHMAN-MEDIATED AMPLIFICATION METHOD TO DETECT rRNA FROM C.TRACHOMATIS AND N.GONORRHOEAE. A NEGATIVE RESULT DOES NOT PRECLUDE INFECTION. THE APTIMA COMBO 2 ASSAY IS NOT INTENDED FOR THE EVALUATION OF SUSPECTED SEXUAL ABUSE OR FOR OTHER MEDICO LEGAL INDICATIONS. THERAPEUTIC FAILURE OR SUCCESS CANNOT BE DETERMINED WITH THE APTIMA COMBO 2 ASSAY SINCE NUCLEIC ACID MAY PERSIST FOLLOWING APPROPRIATE ANTIMICROBIAL THERAPY. IN THE CASE OF A NEGATIVE URINE RESULT, TESTING OF AN ENDOCERVICAL (FEMALE) OR URETHRAL (MALE) SPECIMEN IS RECOMMENDED IF THERE IS HIGH CLINICAL SUSPICION OF INFECTION. 08/10/2013 3:32 PM EST Narrative [facility] - 08/10/2013 3:32 PM EST URINE CHLAMYDIA GC AMP PROBE us Sarah Frost MD LAB MICROBIOLOGY - GENERAL ORD ERABLES Final Result [facility] [address] [place] [address], [place] from Last 3 Months or Most Recently Relevant to Health Maintenance
--- OUTSIDE RECORDS SUMMARY | 2025-01-16 12:27 | XMS_ITS | Clinical Summary ---
Author Organization [employer] Address [address] [facility] [address] [place] [address] Care Team Providers Care Solid Waste Analyst Name Role Phone Unavailable Primary Care Provider Unavailabl e Social History Tobacco Use Types Packs/Day Years Used Date Smoking Tobacco: Never Assessed Comments Unknown Sex and Gender Information Value Date Recorded Sex Assigned at Female 08/02/2022 10:30 AM EDT Legal Sex Female 10:30 AM EDT Gender Identity Female 08/02/2022 10:30 AM EDT Sexual Orientation Choose not to disclose 2021 10:30 AM EDT Plan of Treatment Health Maintenance Due Date Last Done Comments Depression Screening 1997 Alcohol/Substance Use Screening 2009 Tobacco Screening 2009 Family Planning (PISQ) 2012 DTaP/Tdap/Td Vaccines (1 - Tdap) 2016 Hepatitis B Vaccines (1 of 3 - 19+ 3-dose series) 2016 Pap Smear 2018 COVID-19 Vaccine ( - 2023-2 5 season) 2024 Influenza Vaccine (#1) 2024 Zoster Vaccines (1 of 2) 2047 RSV Patients and Pa tients Aged 60 years or older (1 - 1-dose 75+ series) 2072 HIB Vaccines Aged Out No longer eligi ble based on patient's age to complete this topic HPV Vaccines Aged Out No longer eligi ble based on patient's age to complete this topic Hepatitis A Vaccines Aged Out No long er eligible based on patient's age to complete this topic IPV Vaccines Aged Out No longer eligi ble based on patient's age to complete this topic Meningococcal Vaccine Aged Out No francisco silva eligible based on patient's age to complete this topic Pneumococcal Vaccine: Pediat rics (0 to 5 Years) and At-Risk Patients (6 to 49) Years) Aged Out No longer eligible b ased on patient's age to complete this topic RSV under 20 months Aged Out No longe r eligible based on patient's age to complete this topic Rotavirus Vaccines Aged Out No longer eligible based on patient's age to complete this topic
== END 2025-01-16 11:26 | disposition home or self-care (01) ==
PROVIDERS: Emergency Provider Emergency Medicine
DX: S06.0X0A Concussion without loss of consciousness, initial encounter (principal); W22.01XA Walked into wall, initial encounter; Y93.89 Activity, other specified; Y92.031 Bathroom in apartment as the place of occurrence of the external cause; Y99.9 Unspecified external cause status
CPT/HCPCS: 70450; 96372; 99283; 99284; J1885

== ENCOUNTER → 2025-01-16 09:54 | Outpatient (BNV) | payer OTHER, SELFPAY | PROVIDERS: Emergency Provider Emergency Medicine; Visit Provider Radiology Diagnostic Radiology | DX: R51.9 Headache, unspecified (principal) | CPT/HCPCS: 70450 ==